=== PATIENT | male | born 1965 ===

== ENCOUNTER 2017-10-02 08:15 | Emergency (ER) | payer OTHER, SELFPAY ==
[2017-10-02 08:16] VITALS: BMI 39.9
[2017-10-02 08:28] VITALS: TEMP 97.9
--- NOTE | 2017-10-02 08:51 | C.PDOC ---
History Of Present Illness 52 year old male presents to the ED complaining of diarrhea and dark urine. Patient states he drank water from the water fountain at work 15 days ago but believes the water was unfiltered. Patient states he had white stool, dark urine , and abdominal pain after drinking the water. He reports he took Tetracycline for 5 days last week and his abdominal pain went away but he had diarrhea. He denies any fever, chills, nausea, vomiting, dysuria, or any other symptoms. Time Seen by Provider: 10/02/17 08:25 Chief Complaint (Nursing): GI Problem History Per: Patient History/Exam Limitations: no limitations Onset/Duration Of Symptoms: Days Current Symptoms Are (Timing): Still Present Context: Other (Water) Radiation Of Pain To:: None Associated Symptoms: Diarrhea. denies: Fever, Chills, Nausea, Vomiting, Urinary Symptoms Past Medical History Reviewed: Historical Data, Nursing Documentation, Vital Signs Vital Signs: Last Vital Signs Temp 97.9 F 10/02/17 08:20 Pulse 66 10/02/17 12:41 Resp 18 10/02/17 12:41 BP 131/76 10/02/17 12:41 Pulse Ox 98 10/02/17 12:41 - Medical History PMH: HTN Surgical History: No Surg Hx Family History: States: No Known Family Hx - Social History Hx Alcohol Use: Yes Hx Substance Use: No - Immunization History Hx Tetanus Toxoid Vaccination: No Hx Influenza Vaccination: No Hx Pneumococcal Vaccination: No Review Of Systems Except As Marked, All Systems Reviewed And Found Negative. Gastrointestinal: Positive for: Diarrhea Physical Exam - Physical Exam Appears: Non-toxic, No Acute Distress Skin: Warm, Dry, No Rash Head: Atraumatic, Normacephalic Eye(s): bilateral: Scleral Icterus (Mild ) Nose: Normal Oral Mucosa: Moist Throat: Normal, No Erythema, No Exudate, No Drooling Neck: Supple Chest: Symmetrical Cardiovascular: Rhythm Regular Respiratory: Normal Breath Sounds, No Rales, No Rhonchi, No Wheezing Gastrointestinal/Abdominal: Soft, No Tenderness, No Guarding, No Rebound Extremity: Bilateral: Atraumatic, Normal Color And Temperature, Normal ROM Neurological/Psych: Oriented x3, Normal Speech Gait: Steady ED Course And Treatment - Laboratory Results Result Diagrams: 10/02/17 09:02 10/02/17 09:02 O2 Sat by Pulse Oximetry: 98 (RA) Pulse Ox Interpretation: Normal - CT Scan/US US ABD Other Rad Studies (CT/US): Read By Radiologist, Radiology Report Reviewed CT/US Interpretation: Accession No. : [id number]. Patient Name / ID : MARAL OQUENDO / [id number]. Exam Date : 10/02/2017 09:01:39 ( Approved ). Study Comment : Sex / Age : M / 52Y. Creator : Juan M Neri MD. Dictator : Juan M Neri MD. Bulk Gas Specialist : Mixer Operator Helper Hot Metal : Juan M Neri MD. Approver2 : Report Date : 10/02/2017 11:44:08. My Comment : . Date of service: 10/02/2017. HISTORY: abd pain. COMPARISON: None. TECHNIQUE: Sonographic evaluation of the abdomen. FINDINGS: LIVER: Measures 18.5 cm. Increased echogenicity of the liver parenchyma. No mass. No intrahepatic bile duct dilatation. GALLBLADDER: Cholelithiasis is identified within the gallbladder with questionable mural thickening up to 3.6 mm. No pericholecystic fluid collection or sonographic Combs's sign. Clinically correlate for potential cholecystitis nevertheless. COMMON BILE DUCT: Measures 8.0 mm. Mild dilatation appreciated but only a short segment of proximal CBD is captured in this exam. No choledocholithiasis is appreciable. PANCREAS: The tail of the pancreas is obscured by overlying bowel gas with remainder unremarkable. RIGHT KIDNEY: Measures 10.1cm. Normal echogenicity. No calculus, mass, or hydronephrosis. LEFT KIDNEY: Measures 11.2cm. Normal echogenicity. No calculus, mass, or hydronephrosis. SPLEEN: Normal in size and contour, measuring 12.4 cm. No mass. AORTA: No aneurysmal dilatation. IVC : Unremarkable. OTHER FINDINGS: None. IMPRESSION: 1. Mild hepatic steatosis suggested. No definitive hepatic mass evident. No intrahepatic biliary dilatation appreciable. 2. Cholelithiasis with mild gallbladder mural thickening up to 3.6 mm but no other suspicious gallbladder findings. Common bile duct is dilated to 8.0 mm but only a short segment is captured perineal choledocholithiasis evident. . 3. Partial imaging of the pancreas. Medical Decision Making Medical Decision Making: Impression: Diarrhea Plan: - Labs - UA - US Abd abd. pain diarrhea gall bladder disease stool cultures are pending. Patient ate meal and tolerated mild icteric sclera. hepatitis panel negative however lft's slightly elevated will discharge patient home and advise follow up with medical clinic within 2 days. Disposition Counseled Patient/Family Regarding: Studies Performed, Diagnosis, Need For Followup, Rx Given - Disposition Referrals: [facility] [Outside] Disposition: HOME/ ROUTINE Disposition Time: 12:20 Condition: STABLE Additional Instructions: follow up with your doctor or medical clinic within 2 days call to make an appointment take medications as prescribed return to ER if symptoms worsens or progress Prescriptions: Famotidine [Pepcid] 20 mg PO BID #20 tab Naproxen [Naprosyn] 500 mg PO BID PRN #16 tab PRN Reason: Pain, Moderate (4-7) Ondansetron ODT [Zofran ODT] 4 mg PO TID PRN #12 odt PRN Reason: Nausea/Vomiting Instructions: Diarrhea in Adolescents and Adults, Gallstones (DC) Forms: Gen Discharge Inst [place], [facility] ([place]ian) Print Language: TURKMEN - Clinical Impression Clinical Impression: Diarrhea, Choledocholithiasis - Scribe Statement The provider has reviewed the documentation as recorded by the Melissa Wheeler All medical record entries made by the Melissa were at my direction and personally dictated by me. I have reviewed the chart and agree that the record accurately reflects my personal performance of the history, physical exam, medical decision making, and the department course for this patient. I have also personally directed, reviewed, and agree with the discharge instructions and disposition.
[2017-10-02 09:07] LABS: BASO # 0.1 K/uL (0.0-0.2); BASO % 1.2 % (0.0-2.0); EOS # 0.2 K/uL (0.0-0.7); EOS % 3.5 % (0.0-4.0); HEMOGLOBIN 14.8 g/dL (12.0-18.0); LYMPH # 1.1 K/uL (1.0-4.3); LYMPH % 21.8 % (20.0-40.0); MEAN CELL VOLUME 87.9 fL (80.0-94.0); MEAN CORPUSCULAR HEMOGLOBIN 30.7 pg (27.0-31.0); MEAN CORPUSCULAR HGB CONC 34.9 g/dL (33.0-37.0); MEAN PLATELET VOLUME 10.1 fL (7.2-11.7); MONO # 0.5 K/uL (0.0-0.8); MONO % 10.1 % (0.0-10.0); NEUT # 3.1 K/uL (1.8-7.0); NEUT % 63.4 % (50.0-75.0); RBC 4.81 Mil/uL (4.40-5.90); RED CELL DISTRIBUTION WIDTH 15.1 % (11.5-14.5); WHITE BLOOD COUNT 4.9 K/uL (4.8-10.8)
[2017-10-02 09:09] LABS: SQUAMOUS EPITHIAL < 1 /hpf (0-5); URINE BACTERIA RARE (<OCC); URINE BILIRUBIN 1+ (NEGATIVE); URINE BLOOD NEGATIVE (NEGATIVE); URINE CLARITY Clear (Clear); URINE COLOR Amber (YELLOW); URINE GLUCOSE (UA) NORMAL (Normal); URINE LEUKOCYTE ESTERASE NEG Leu/uL (Negative); URINE PROTEIN NEGATIVE (NEGATIVE)
[2017-10-02 09:14] LABS: PROTHROMBIN TIME 11.4 SECONDS (9.7-12.2)
[2017-10-02 09:33] LABS: ALB/GLOB RATIO 1.2 (1.0-2.1); ALBUMIN 4.5 g/dL (3.5-5.0); ALT/SGPT 189 U/L (21-72); AST/SGOT 113 U/L (17-59); BLOOD UREA NITROGEN 17 mg/dL (9-20); CALCIUM 9.6 mg/dl (8.6-10.4); GFR AFRICAN-AMERICAN > 60; GFR NON-AFRICAN AMERICAN > 60; LIPASE 82 U/L (23-300)
[2017-10-02 10:03] LABS: HEPATITIS B SURFACE AG Negative (NEGATIVE)
[2017-10-02 10:09] LABS: HEPATITIS A IGM NEGATIVE (NEGATIVE); HEPATITIS B CORE AB NEGATIVE (NEGATIVE)
[2017-10-02 10:21] LABS: HEPATITIS C ANTIBODY NEGATIVE (NEGATIVE)
[2017-10-02 10:43] VITALS: RESP 18
--- NOTE | 2017-10-02 11:45 | US ---
Date of service: 10/02/2017 HISTORY: abd pain COMPARISON: None. TECHNIQUE: Sonographic evaluation of the abdomen. FINDINGS: LIVER: Measures 18.5 cm. Increased echogenicity of the liver parenchyma. No mass. No intrahepatic bile duct dilatation. GALLBLADDER: Cholelithiasis is identified within the gallbladder with questionable mural thickening up to 3.6 mm. No pericholecystic fluid collection or sonographic Combs's sign. Clinically correlate for potential cholecystitis nevertheless. COMMON BILE DUCT: Measures 8.0 mm. Mild dilatation appreciated but only a short segment of proximal CBD is captured in this exam. No choledocholithiasis is appreciable. PANCREAS: The tail of the pancreas is obscured by overlying bowel gas with remainder unremarkable. RIGHT KIDNEY: Measures 10.1cm. Normal echogenicity. No calculus, mass, or hydronephrosis. LEFT KIDNEY: Measures 11.2cm. Normal echogenicity. No calculus, mass, or hydronephrosis. SPLEEN: Normal in size and contour, measuring 12.4 cm. No mass. AORTA: No aneurysmal dilatation. IVC: Unremarkable. OTHER FINDINGS: None. IMPRESSION: 1. Mild hepatic steatosis suggested. No definitive hepatic mass evident. No intrahepatic biliary dilatation appreciable. 2. Cholelithiasis with mild gallbladder mural thickening up to 3.6 mm but no other suspicious gallbladder findings. Common bile duct is dilated to 8.0 mm but only a short segment is captured perineal choledocholithiasis evident. . 3. Partial imaging of the pancreas.
[2017-10-02 12:20] VITALS: O2SAT 98
[2017-10-02 12:42] VITALS: BP 131/76; PULSE 66
== END 2017-10-02 12:42 | disposition home or self-care (01) ==
LOC: C.ER 08:15
DX: K80.70 Calculus of gallbladder and bile duct without cholecystitis without obstruction (principal); R19.7 Diarrhea, unspecified